=== PATIENT | male | born 1940 | race African-American/Black ===

== ENCOUNTER 2017-12-06 21:21 | Observation (INO) ==
[2017-12-09 08:10] VITALS: BP 138/74
== END 2017-12-09 12:45 | disposition home or self-care (01) ==
LOC: N.ED 21:21 → N.EDINP 21:21 → SUATTDRO 12-07 01:07 → N.TELEN 12-07 02:18
PROVIDERS: ADMIT Internal Medicine; ATTEND Internal Medicine
PROC: CLCCHCL (ICD-10-PCS; 2017-12-08 09:15)